=== PATIENT | female | born 1995 | race Caucasian/White ===

== ENCOUNTER → 2021-06-12 | Outpatient (CLI) | payer BC ==
[2021-06-13 08:05] LABS: HEPATITIS B SURFACE AB Non Reactive (.)
== END | disposition home or self-care (01) ==
LOC: RESCLI 11:54
PROVIDERS: Internal Medicine; ATTEND Internal Medicine
DX: Z11.59 Encounter for screening for other viral diseases (principal); H93.19 Tinnitus, unspecified ear; Z88.8 Allergy status to other drugs, medicaments and biological substances; Z79.899 Other long term (current) drug therapy

== ENCOUNTER → 2021-06-16 | Outpatient (CLI) | payer BC | END | disposition short-term general hospital (02) | LOC: RESCLI 10:44 | PROVIDERS: ATTEND Hospitalist | DX: Z71.85 Encounter for immunization safety counseling (principal); Z23 Encounter for immunization; Z79.899 Other long term (current) drug therapy ==

== ENCOUNTER → 2021-07-17 | Outpatient (CLI) | payer BC | END | disposition home or self-care (01) | LOC: RESCLI 01:53 | PROVIDERS: ATTEND Internal Medicine | DX: Z23 Encounter for immunization (principal); Z79.899 Other long term (current) drug therapy; Z88.8 Allergy status to other drugs, medicaments and biological substances ==

== ENCOUNTER → 2021-12-17 | Outpatient (CLI) | payer BC | END | disposition home or self-care (01) | LOC: RESCLI 01:40 | PROVIDERS: ATTEND Internal Medicine | DX: Z23 Encounter for immunization (principal); K80.50 Calculus of bile duct without cholangitis or cholecystitis without obstruction; F41.9 Anxiety disorder, unspecified; Z88.8 Allergy status to other drugs, medicaments and biological substances; Z98.890 Other specified postprocedural states; Z79.899 Other long term (current) drug therapy ==